=== PATIENT | female | born 1990 | race African-American/Black ===

== ENCOUNTER 2017-11-21 13:32 | Emergency (ER) | payer MEDICAID ==
[~2017-11-21] VITALS: Ht 175.3 cm; Wt 63.0 kg
[2017-11-21 13:59] VITALS: BP 127/78
== END 2017-11-21 18:39 | disposition left against medical advice (07) ==
LOC: ER 13:56
DX: R10.9 Unspecified abdominal pain (principal); R05 Cough; Z53.21 Procedure and treatment not carried out due to patient leaving prior to being seen by health care provider